=== PATIENT | male | born 1965 | race Two or more races ===

== ENCOUNTER 2021-08-19 12:15 | Inpatient (IN) | payer OTHER ==
[2021-08-19] MEDS ORDERED: FORTAMET500 MG PO (13:36)
== END 2021-08-27 11:48 | disposition home or self-care (01) | DRG 330 ==
LOC: O/R 08-25 10:02 → SURH 08-25 12:15 → SURG 08-25 20:45
PROVIDERS: ADMIT Colon & Rectal Surgery; ATTEND Colon & Rectal Surgery
PROC: 0DTN4ZZ Resection of Sigmoid Colon, Percutaneous Endoscopic Approach (ICD-10-PCS; 2021-08-25)
PROC: 3E0F7SF Introduction of Other Gas into Respiratory Tract, Via Natural or Artificial Opening (ICD-10-PCS; 2021-08-25)
PROC: 0DTP4ZZ Resection of Rectum, Percutaneous Endoscopic Approach (ICD-10-PCS; principal; 2021-08-25 15:00)
DX: K57.32 Diverticulitis of large intestine without perforation or abscess without bleeding (principal); K92.1 Melena; E11.9 Type 2 diabetes mellitus without complications; F17.200 Nicotine dependence, unspecified, uncomplicated